=== PATIENT | female | born 1990 ===

== ENCOUNTER 2025-01-31 14:57 | Outpatient (REF) | payer OTHER, SELFPAY ==
[2025-01-31 18:07] LABS: MANUAL DIFF FLAG NO
[2025-01-31 18:38] LABS: Hematocrit 40.9 % (37.0-47.0); Hemoglobin 13.1 g/dl (12.0-16.0); Imm Gran Abs Auto 0.02 X10*3/uL (0.00-0.03); Imm Gran Pct Auto 0.2 % (0.0-0.4); Lymphocytes Absolute Auto 3.5 X10*3/uL (1.2-4.9); Mean Corpuscular HGB Conc 32.0 g/dl (31.0-35.0); Mean Corpuscular Hemoglobin 26.1 pg (27.0-33.0); Mean Corpuscular Volume 81.6 fL (80.0-98.0); NRBC Abs Auto 0.000 X10*3/uL (0.0-0.012); NRBC Pct Auto 0.0 /100WBC (0.0-0.2); Platelet Count 317 X10*3/uL (160-400); Red Blood Count 5.01 X10*6/uL (4.20-5.50); White Blood Count 11.8 X10*3/uL (4.8-10.8)
[2025-01-31 18:40] LABS: Alanine Aminotransferase 30 U/L (0-31); Albumin Level 4.2 g/dL (3.5-5.0); Alkaline Phosphatase 67 U/L (39-117); Anion Gap 11 (12-20); Aspartate Amino Transferase 37 U/L (5-31); Blood Urea Nitrogen 11 mg/dL (9-16); Calcium 9.1 mg/dL (8.4-10.2); Carbon Dioxide 26 mmol/L (22-29); Chloride 107 mmol/L (96-108); Cholesterol 181 mg/dL (<200); Estimated Glomerular Filt Rate > 60; HDL Cholesterol 43 mg/dL (>40); Potassium 3.8 mmol/L (3.3-5.1); Sodium 140 mmol/L (135-145); Total Protein 7.4 g/dL (6.5-8.0); Triglycerides 103 mg/dL (<150)
[2025-01-31 18:44] LABS: Appearance Urine Clear; Glucose Urine UA Negative (Negative); PH 8.5 (5.0-9.0); Specific Gravity - Urine 1.015 (1.005-1.025)
[2025-01-31 19:03] LABS: Folate 8.1 ng/mL (> or = 4.0); Vitamin B12 298 pg/mL (200-900)
[2025-02-01 10:43] LABS: HBS Num1 37.57 mIU/mL (0-7.99); HBsAGNum1 0.51 S/CO (0.00-0.99); HIV Num 1 0.05 S/CO (0.00-0.99); Hepatitis B Surface Antigen Negative (Negative); ~HepC Num1 0.07 S/CO (0.00-0.79); ~Hepatitis B Surface Antibody REACTIVE (Nonreactive); ~Hepatitis C Antibody Nonreactive (Nonreactive)
[2025-02-06 01:29] LABS: VITAMIN D (1,25 OH) D3 65 pg/mL; Vit D (1,25-Dihydroxy) Total 65 pg/mL (18-72); Vitamin D (1,25 OH) D2 <8 pg/mL
== END 2025-01-31 14:58 | disposition home or self-care (01) ==
LOC: HO.HKASLDS 14:57
PROVIDERS: PCP Student in an Organized Health Care Education/Training Program; Visit Provider Student in an Organized Health Care Education/Training Program
DX: Z13.9 Encounter for screening, unspecified (principal); K59.00 Constipation, unspecified; R14.0 Abdominal distension (gaseous); E66.811 Obesity, class 1; Z97.5 Presence of (intrauterine) contraceptive device; Z68.32 Body mass index [BMI] 32.0-32.9, adult
CPT/HCPCS: 36415; 80053; 80061; 81003; 82607; 82652; 82746; 83036; 84443; 85025; 86706; 86803; 87340; 87389

== ENCOUNTER 2025-01-31 14:57 | Outpatient (AMB) | payer OTHER, SELFPAY ==
--- NOTE | 2025-01-31 14:59 | A.OFFPC_ITS ---
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 History of Present Illness The patient is a 34-year-old female presenting with a wellness visit and gastrointestinal symptoms. Constipation: The patient reports experiencing constipation for several months, starting after June of this year. She describes episodes of extreme pain and infrequent bowel movements, sometimes going days without passing stool, which are small when they occur. Her diet includes salads, rice, beans, and pasta, and she drinks a significant amount of water daily. Bloating: The patient experiences bloating and a hard sensation in the upper abdomen after meals, which has been ongoing for a few months. She reports that this sensation prevents her from eating for hours and is not associated with acid reflux. Surgical History: - Cervical cerclage Medications: - Allergy medication (unspecified) Social History: - Employment: Works at [employer] - Family status: Mother of three childre n - Substance use: Occasionally drinks alc ohol, denies smoking and drug use - Diet: Consumes salads, rice, beans, pa sta; reports stress affecting eating habits Family History: - Breast cancer in maternal grandmother and her siblings - No history of breast cancer in mother Review of Systems - Gastrointestinal: Reports bloating and constipation; denies acid reflux - General: Denies fatigue or sleep distu rbances 10-point ROS reviewed and negative excep t as noted in HPI Past Medical History Health Maintenance - Pap smear due - Recommended to start mammogram screeni dalila at age 42 Physical Exam General: Well-appearing, in no acute distress. Vital signs: Within normal limits. HEENT: Normocephalic, atraumatic. PERRLA, EOMI. Conjunctiva clear, sclera anicteric. Oropharynx clear, mucous membranes moist. TMs intact bilaterally. Neck: Supple, no lymphadenopathy, no thyromegaly, no JVD or carotid bruits. Cardiovascular: RRR, normal S1/S2, no murmurs, rubs, or gallops. Peripheral pulses 2+ and symmetric. No edema. Respiratory: Lungs clear to auscultation bilaterally, no wheezes, rales, or rhonchi. Normal effort. Abdomen: Soft, non-tender, non-distended. Normoactive bowel sounds. No hepatosplenomegaly, no masses. Reports bloating and constipation, with upper abdominal discomfort. MSK: Full range of motion, no joint swelling or deformity. Normal gait. Skin: Warm, dry, intact. No rashes, lesions, or pallor. Neuro: Alert and oriented x3. Cranial nerves II-XII intact. Strength 5/5 throughout. Sensation intact. Reflexes 2+ symmetric. Normal coordination and gait. Psych: Appropriate mood and affect. Normal judgment and insight. Plan 1. Constipation - Plan to initiate treatment with MiraLA X and bisacodyl to alleviate constipation. - Advised to maintain a food and symptom journal for two weeks to identify dietary triggers. 2. Bloating - Prescribed pantoprazole 20 mg daily be fore meals to reduce gastric acid production. - Recommended to document symptoms in a journal to monitor response to treatment. 3. Preventative Care - Scheduled for comprehensive blood work including CBC, CMP, lipid panel, and vitamin levels. - Pap smear is due; advised to schedule the screening. Discussion Notes I discussed with the patient the plan to address her gastrointestinal symptoms, including the use of pantoprazole and laxatives. We reviewed the importance of maintaining a food and symptom journal to help identify potential dietary triggers. I also advised her on the need for a Pap smear and the recommended age to begin mammogram screenings. Patient Instructions - Take pantoprazole 20 mg daily before m eals. - Use MiraLAX and bisacodyl as directed to relieve constipation. - Keep a food and symptom journal for tw o weeks. - Schedule a Pap smear. Medical Decision Making The patient presents with gastrointestinal symptoms, primarily constipation and bloating, which have persisted for several months. Given the absence of alarming features such as weight loss or bleeding, the initial approach includes symptomatic management with pantoprazole and laxatives. The goal is to alleviate symptoms and improve bowel regularity. A food and symptom journal will aid in identifying dietary triggers. Preventative care measures, including a Pap smear and comprehensive blood work, are also planned to ensure overall health maintenance. Total time spent caring for the patient today was 30 minutes. This includes time spent before the visit reviewing the chart, time spent documenting, and time spent reviewing laboratory results, diagnostic imaging, medications, performing a medically necessary evaluation, counseling on diagnoses, care coordination, ordering appropriate tests, ordering appropriate medications. [facility] Medical History (Updated 01/31/25 @ 15:43 by Mukul Goetz MD) Class 1 obesity IUD check up Family History (Updated 01/31/25 @ 15:00 by Carlos Garcia MA) Father No problems noted. Mother No problems noted. Social History (Updated 01/31/25 @ 15:02 by Carlos Garcia MA) Housing: House Alcohol intake: current Alcohol intake frequency: a few times a month Patient Tobacco Use Status: Never used Tobacco service: No Current occupational status: employed Cognitive needs: No Hearing needs: No Vision needs: Yes (rx glasses) Questionnaire PHQ-9 Over the last 2 weeks, how often have you been bothered by any of the following problems? 1. Little interest or pleasure in doing things: not at all 2. Feeling down, depressed, or hopeless: not at all 3. Trouble falling or staying asleep, or sleeping too much: not at all 4. Feeling tired or having little energy: more than half the days 5. Poor appetite or overeating: more than half the days 6. Feeling bad about yourself - or that you are a failure or have let yourself or your family down: not at all 7. Trouble concentrating on things, such as reading the newspaper or watching television: not at all 8. Moving or speaking so slowly that other people could have noticed. Or the opposite - being so fidgety or restless that you have been moving around a lot more than usual: not at all 9. Thoughts that you would be better off or of hurting yourself in some way: not at all Total score: 4 Source: Developed by Drs. Tyson Mattson, Arabella Corcoran, Zeus Sahni and colleagues, with an educational ernst from [email or web address]. Thrive Questionnaire Date Thrive assessed: 01/31/25 I am a: Patient What is your living situation today?: I have a steady place to live Within the past 12 months, did the food you bought not last and you didn't have the money to get more?: Never true Within the past 12 months, did you worry whether your food would run out before you got money to buy more?: Never true Do you have trouble paying for medicines?: No Do you have trouble getting transportation to medical appointments?: No Do you have trouble paying your heating and electricity bill?: No Do you have trouble taking care of your child, family member or friend?: No Are you currently unemployed and looking for a job?: No Are you interested in more education?: No Please select the resources that you would like help with: None Currently or been in a relationship where the following occur: No concerns reported THRIVE Score: 0 AUDIT C Alcohol Use Questionnaire (AUDIT-C) 1. How often do you have a drink containing alcohol?: Monthly or less 2. How many drinks containing alcohol do you have on a typical day when you are drinking?: 1 or 2 3. How often do you have six or more drinks on one occasion?: Never Total Score: 1 DAVID-7 AMB Questionnaire DAVID-7 Date DAVID - 7 assessed: 01/31/25 Feeling nervous, anxious, or on edge: 2 = More than half the days Not being able to stop or control worryin = More than half the days Worrying too much about different things: 0 = Not at all Trouble relaxin = Not at all Being so restless that it is hard to sit still: 0 = Not at all Becoming easily annoyed or irritable: 0 = Not at all Feeling afraid as if something awful might happen: 0 = Not at all Total DAVID-7 score (0-4 normal; 5-9 mild; 10-14 moderate; 15-21 severe): 4 Source: Developed by Drs. Tyson Mattson, Arabella Corcoran, Zeus Sahni and colleagues, with an educational ernst from [email or web address]. Physical exam (Primary Care) Vital Signs: Last Vital Signs Temp 99.3 F 01/31/25 15:03 Pulse 82 01/31/25 15:03 Resp 16 01/31/25 15:03 BP 126/81 01/31/25 15:03 Pulse Ox 98 01/31/25 15:03 Oxygen Delivery Method Room Air 01/31/25 15:03 BMI result Body Mass Index 32.4 Tobacco/Smoking Status: Tobacco use Status Tobacco use date assessed 01/31/25 01/31/25 15:11 Patient Tobacco Use Status Never used Tobacco 01/31/25 15:11 PHQ-9: PHQ-9 Score PHQ-9: Total score 4 01/31/25 15:11 Thrive Assessment: Date of Thrive Assessment Date Thrive assessed 01/31/25 01/31/25 15:11 Currently or been in a relationship where the following occur: No concerns reported Coding Level of Care Code New Pt Level 4 (39706) Diagnoses Constipation K59.00 Bloating R14.0 IUD (intrauterine device) in place Z97.5 Class 1 obesity E66.811 Assessment & Plan Assessment & Plan (1) Constipation: Code(s): K59.00 - Constipation, unspecified (2) Bloating: Code(s): R14.0 - Abdominal distension (gaseous) (3) IUD (intrauterine device) in place: Code(s): Z97.5 - Presence of (intrauterine) contraceptive device (4) Class 1 obesity: Code(s): E66.811 - Obesity, class 1 Category: Medical Plan Orders: Orders 2 Comprehensive Met. Panel Today Z.9 - Encounter for screening, unspecified Hemoglobin A1c Today Z13.9 - Encounter for screening, unspecified HIV Ab/Ag Today Z13.9 - Encounter for screening, unspecified Lipid Panel Today Z13.9 - Encounter for screening, unspecified TSH reflex Free T4 Today Z13.9 - Encounter for screening, unspecified UA CC w/rflx Micro + Cult Today Z13.9 - Encounter for screening, unspecified Vitamin D 1,25 dihydroxy Today Z13.9 - Encounter for screening, unspecified Complete Blood Count Auto Diff Today Z13.9 - Encounter for screening, unspecified Hepatitis B Surface Antibody Today Z13.9 - Encounter for screening, unspecified Hepatitis B Surface Antigen Today Z13.9 - Encounter for screening, unspecified Hepatitis C Antibody Today Z13.9 - Encounter for screening, unspecified Vitamin B12 and Folate Today Z13.9 - Encounter for screening, unspecified Referrals GUIDE FOREIGN TOUR Referral Z30.431 - Encounter for routine checking of intrauterine contraceptive device Medications: New pantoprazole 20 mg PO DAILY 30 tabs 0RF polyethylene glycol 3350 (Miralax) 17 grams PO DAILY 30 ea 0RF bisacodyl 5 mg PO BEDTIME 2 tabs 0RF 2 days
[2025-01-31 15:03] VITALS: BP 126/81; PULSE 82; RESP 16; TEMP 37.4; O2SAT 98; BMI 32.4
== END 2025-01-31 15:35 | disposition home or self-care (01) ==
LOC: HO.HMCFMS 14:58
PROVIDERS: PCP Student in an Organized Health Care Education/Training Program; Visit Provider Student in an Organized Health Care Education/Training Program
DX: K59.00 Constipation, unspecified (principal); R14.0 Abdominal distension (gaseous); Z97.5 Presence of (intrauterine) contraceptive device; E66.811 Obesity, class 1